=== PATIENT | male | born 1965 | race Caucasian/White ===

== ENCOUNTER 2022-12-24 07:06 | Emergency (ER) | payer BC, SELFPAY ==
--- NOTE | ~2022-12-24 | XR_ITS ---
EXAMINATION: XR ELBOW, LEFT CLINICAL INFORMATION: Redness and pain COMPARISON: None available. TECHNIQUE: 3 views of the left elbow. FINDINGS: Bone alignment is normal. No acute fracture or dislocation. There is question of old trauma to the lateral supracondylar humerus. Joint spaces are normal. There is no elbow joint effusion. There is soft tissue swelling over the olecranon probably representing olecranon bursitis. There is a small osteophyte at the triceps tendon insertion to the olecranon. XR/XR elbow LT min 3V IMPRESSION: Soft tissue swelling over the olecranon probably representing olecranon bursitis.
[2022-12-24 07:24] VITALS: BP 139/91; PULSE 76; RESP 16; TEMP 37.1; O2SAT 98; BMI 30.4
--- NOTE | 2022-12-24 08:29 | PC.NURSE ---
pt a&ox3. respirations even and unlabored. pt reporting left elbow pain for 3 weeks. elbow is red with round lump that is soft and non tender to touch. pt denies fever, chest pain, n/v. pt has appointment with ortho in 2 weeks but felt he should be seen sooner.
--- NOTE | 2022-12-24 08:43 | ED.EXTPRO ---
HPI - Extremity Problem General Chief complaint: Extremity Problem Stated complaint: elbow infection Time Seen by Provider: 12/24/22 08:32 Source: patient, RN notes reviewed and old records reviewed Mode of arrival: ambulatory History of Present Illness HPI Narrative: 57-year-old male with a past medical history of bursitis presenting to ED complaining of persistent left elbow bursitis with swelling and erythema x 3 weeks. Admits was seen at urgent care prescribed antibiotics which he finished 4 days ago, followed by seeing PCP who recommended orthopedic referral, but orthopedic appointment is in 2 weeks. Presented to the ED complaining of continued discomfort and concern for infection. Denies fever/chills, no injury/trauma or fall, history diabetes, decreased ROM MD Complaint: extremity pain and extremity swelling Onset (ago): week(s) Related Data Previous Rx's Medication Instructions Recorded acetaminophen 500 mg tablet 500 mg PO Q6H PRN fever or pain 12/24/22 (Tylenol Extra Strength) #14 tabs cephalexin 500 mg capsule 500 mg PO QID 7 days #28 caps 12/24/22 doxycycline hyclate 100 mg tablet 100 mg PO BID 7 days #14 tabs 12/24/22 morphine 15 mg immediate release 15 mg PO Q6H PRN pain (scale score 12/24/22 tablet 7-10) 3 days #9 tabs Allergies Allergy/AdvReac Type Severity Reaction Status Date / Time No Known Allergies Allergy Verified 12/24/22 07:24 Review of Systems Review of Systems: Constitutional: No Fever, No Chills ENT/Mouth: No Ear Pain, No Nasal Congestion, No sore throat, No Rhinorrhea, No Swallowing Difficulty Cardiovascular: No Chest Pain, No SOB Respiratory: No Cough Gastrointestinal: No Nausea, No Vomiting, No Abdominal pain Musculoskeletal: + joint pain, No Myalgias, + Joint Swelling Skin: No Skin Lesions, No rash Neuro: No Weakness, No Numbness, No Paresthesias Yes all other systems are reviewed and are negative Constitutional: Constitutional: Reports as per [facility] Past Medical History Attestation statement: The following information was validated with the patient. Source: old records reviewed Social History Social History Alcohol intake: current Alcohol intake frequency: holidays/special occasions only Smoked in Last 30 Days: No Use of substances other than those prescribed or required for medical reasons: No Advance Directives: No Advance Directives Information Provided: Yes Physical Exam Vital Signs: Vital Signs: Last Vital Signs Temp 98.7 F 12/24/22 07:24 Pulse 64 12/24/22 12:32 Resp 16 12/24/22 12:32 BP 130/77 12/24/22 12:32 Pulse Ox 97 12/24/22 12:32 O2 Del Method Room Air 12/24/22 12:32 BMI result Body Mass Index 30.4 Const: General: cooperative, healthy appearing and no acute distress Orientation/consciousness: patient oriented x3 Limitations: no limitations HEENT: Head: Yes normal to inspection and Yes atraumatic Ears: hearing grossly normal bilaterally General nose exam: Normal external nose present Face and sinus: Yes normal facial exam Eyes: General: appearance normal, both eyes and all related structures EOM: EOMs intact bilaterally Neck: Neck: Yes normal visual inspection and Yes no meningeal signs Resp: Effort & Inspection: normal respiratory effort and no respiratory distress Cardio: Rate: regular rate Peripheral pulses: radial pulses present and ulnar radial pulses present Skin: Rashes: no rashes Wounds: no wounds Neuro: General: patient oriented x3, tone normal and no meningeal signs Cranial nerves: Yes CN's II-XII intact bilaterally Gait exam (Neuro): Normal gait present Extrem: Other: Patient refer to images above of left elbow. + erythematous/swollen bursitis noted, not warm, nontender, full range of motion to elbow intact. Neurovascular intact distally. No fluctuance/induration or streaking. Course Course Course Narrative: XR elbow LT min 3V IMPRESSION: Soft tissue swelling over the olecranon probably representing olecranon bursitis. -no leukocytosis. ESR/CRP WNL. > case was discussed with orthopedic PA Matt recommended Benny wrap for compression and 1 time dose of IV antibiotics in the ED, d/c on p.o. antibiotics and orthopedic follow-up. -on re-evaluation patient reports symptomatic improvement after p.o. morphine given, requesting stronger dose of morphine upon discharge, discussed with patient at length this is not indicated Results discussed with patient including worrisome signs and symptoms and strict return precautions, and when to return to the emergency department. They verbalized understanding and feel safe for discharge at this time. Medications Administered Discontinued Medications Generic Name Dose Route Start Last Admin Trade Name Freq PRN Reason Stop Dose Admin Ceftriaxone Sodium 1 gm/ 50 mls @ 100 mls/hr 12/24/22 10:25 12/24/22 12:17 Sodium Chloride IV 12/24/22 10:54 Infused ONCE ONE Infusion Ketorolac Tromethamine 15 mg 12/24/22 10:30 12/24/22 11:12 Ketorolac Tromethamine 15 Mg/Ml Vial IVPUSH 12/24/22 10:31 15 mg ONCE ONE Administration Morphine Sulfate 15 mg 12/24/22 12:28 12/24/22 12:32 Morphine Sulfate Immed Release 15 Mg Tablet PO 12/24/22 12:29 15 mg ONCE ONE Administration Medical Decision Making Medical Decision Making MDM Narrative: 57-year-old male with a past medical history of bursitis presenting to ED complaining of persistent left elbow bursitis with swelling and erythema x 3 weeks. On exam vital signs stable, NAD, nontoxic appearing, physical exam as noted above, please refer to images. Concern for bursitis & infection/cellulitis vs ?Gout. Low suspicion for septic joint/arthritis Plan: Labs, Ortho consult Please refer to course for remaining clinical decision making, interpretation of labs/imaging results, and discussions with consultants and/or family members. Differential Diagnosis Differential Diagnoses: The differential diagnosis associated with the presentation includes As above Admission/Observation Consideration of admission/observation: Escalation of care including admission/observation considered Lab Data [facility] Lab Attestation statement: I reviewed the patient's lab results. 12/24/22 09:08 12/24/22 09:08 Labs: Lab Results 12/24/22 12/24/22 12/24/22 Range/Units 09:08 09:08 09:08 WBC 7.4 (4.8-10.8) X10*3/uL RBC 4.90 (4.60-5.80) X10*6/uL Hgb 14.0 (14.0-18.0) g/dl Hct 41.6 L (42.0-52.0) % MCV 84.9 (80.0-98.0) fL MCH 28.6 (27.0-33.0) pg MCHC 33.7 (31.0-36.0) g/dl RDW 12.7 (11.0-16.0) % Plt Count 253 (160-400) X10*3/uL MPV 9.2 L (9.4-12.4) fL Immature Gran % (Auto) 0.5 H (0.0-0.4) % Neut % (Auto) 67.1 (45-73) % Lymph % (Auto) 21.4 (20-40) % Florence % (Auto) 8.2 (2-11) % Eos % (Auto) 2.0 (0-4) % Baso % (Auto) 0.8 (0-2) % Lymph # (Auto) 1.6 (1.2-4.9) X10*3/uL Florence # (Auto) 0.6 (0.1-1.2) X10*3/uL Eos # (Auto) 0.2 (0.0-0.4) X10*3/uL Baso # (Auto) 0.1 (0.0-0.2) X10*3/uL Abs Immat Gran (auto) 0.04 H (0.00-0.03) X10*3/uL Absolute Neuts (auto) 5.0 (2.0-8.3) x10*3/uL Absolute Nucleated RBC 0.000 (0.0-0.012) X10*3/uL Nucleated RBC % (auto) 0.0 (0.0-0.2) /100WBC ESR 13 (0-15) MM/HR Sodium 141 (135-145) mmol/L Potassium 4.3 (3.3-5.1) mmol/L Chloride 107 (96-108) mmol/L Carbon Dioxide 24 (22-29) mmol/L Anion Gap 14 (12-20) BUN 18 H (9-16) mg/dL Creatinine 0.87 (0.5-1.4) mg/dL Estim Creat Clear Calc 103.6 Estimated GFR > 60 Random Glucose 88 (60-115) mg/dL Uric Acid (3.4-7.0) mg/dL Calcium 9.4 (8.4-10.2) mg/dL C-Reactive Protein 0.38 (< or = 0.50) mg/dL 12/24/22 Range/Units 09:08 WBC (4.8-10.8) X10*3/uL RBC (4.60-5.80) X10*6/uL Hgb (14.0-18.0) g/dl Hct (42.0-52.0) % MCV (80.0-98.0) fL MCH (27.0-33.0) pg MCHC (31.0-36.0) g/dl RDW (11.0-16.0) % Plt Count (160-400) X10*3/uL MPV (9.4-12.4) fL Immature Gran % (Auto) (0.0-0.4) % Neut % (Auto) (45-73) % Lymph % (Auto) (20-40) % Florence % (Auto) (2-11) % Eos % (Auto) (0-4) % Baso % (Auto) (0-2) % Lymph # (Auto) (1.2-4.9) X10*3/uL Florence # (Auto) (0.1-1.2) X10*3/uL Eos # (Auto) (0.0-0.4) X10*3/uL Baso # (Auto) (0.0-0.2) X10*3/uL Abs Immat Gran (auto) (0.00-0.03) X10*3/uL Absolute Neuts (auto) (2.0-8.3) x10*3/uL Absolute Nucleated RBC (0.0-0.012) X10*3/uL Nucleated RBC % (auto) (0.0-0.2) /100WBC ESR (0-15) MM/HR Sodium (135-145) mmol/L Potassium (3.3-5.1) mmol/L Chloride (96-108) mmol/L Carbon Dioxide (22-29) mmol/L Anion Gap (12-20) BUN (9-16) mg/dL Creatinine (0.5-1.4) mg/dL Estim Creat Clear Calc Estimated GFR Random Glucose (60-115) mg/dL Uric Acid 5.1 (3.4-7.0) mg/dL Calcium (8.4-10.2) mg/dL C-Reactive Protein (< or = 0.50) mg/dL Independent Interpretation I performed an independent interpretation of an: Plain X-Ray Radiology Impression Discussion of test interpretation with radiology: I have reviewed the radiologist's reading. Radiologist Impression: XR elbow LT min 3V IMPRESSION: Soft tissue swelling over the olecranon probably representing olecranon bursitis. External Record Review External record reviewed: Inpatient record, Office record, Outpatient record, Prior outpatient labs, Prior outpatient radiology, Primary care record and Outside ED record Tests considered The following testing was considered but not selected: As above Discharge Plan Discharge Clinical Impression: Bursitis Patient Disposition: Home, Self-Care Instructions: Elbow Bursitis (ED) Additional Instructions: Your blood work is reassuring. Her x-ray is consistent with bursitis Wear Benny wrap for compression Toradol as an anti-inflammatory/pain medication take with food In addition Keflex and doxycycline or antibiotics do not miss any doses Morphine isn't opiate pain medication, take only when pain is severe for the next [address], operate machinery or drink alcohol while taking morphine In addition you may take Tylenol YOU NEED TO FOLLOW-UP WITH ORTHOPEDIC SURGEON If symptoms persist or worsen return to the ED Prescriptions: New morphine 15 mg tablet 15 mg PO Q6H PRN (Reason: pain (scale score 7-10)) 3 Days Qty: 9 0RF Rx Instructions: Partial Fill upon patient request. acetaminophen [Tylenol Extra Strength] 500 mg tablet 500 mg PO Q6H PRN (Reason: fever or pain) Qty: 14 0RF cephalexin 500 mg capsule 500 mg PO QID 7 Days Qty: 28 0RF doxycycline hyclate 100 mg tablet 100 mg PO BID 7 Days Qty: 14 0RF Referrals: [facility] Sur[facility] [Provider Group] - 3 days (Bursitis x3 wks, failed outpatient abx) Physician,Unknown J [Primary Care Provider] - Interventions: ED Discharge Assessment Last Done: 12/24/22 14:23 Discharge Date/Time: 12/24/22 14:23
[2022-12-24 09:13] LABS: MANUAL DIFF FLAG NO
[2022-12-24 09:14] LABS: Basophils Absolute Auto 0.1 X10*3/uL (0.0-0.2); Basophils Percent Auto 0.8 % (0-2); Eosinophils Absolute Auto 0.2 X10*3/uL (0.0-0.4); Hematocrit 41.6 % (42.0-52.0); Imm Gran Abs Auto 0.04 X10*3/uL (0.00-0.03); Imm Gran Pct Auto 0.5 % (0.0-0.4); Lymphocytes Absolute Auto 1.6 X10*3/uL (1.2-4.9); Lymphocytes Percent Auto 21.4 % (20-40); Mean Corpuscular HGB Conc 33.7 g/dl (31.0-36.0); Mean Corpuscular Hemoglobin 28.6 pg (27.0-33.0); Mean Corpuscular Volume 84.9 fL (80.0-98.0); Mean Platelet Volume 9.2 fL (9.4-12.4); Monocytes Absolute Auto 0.6 X10*3/uL (0.1-1.2); Monocytes Percent Auto 8.2 % (2-11); Neutrophils Percent Auto 67.1 % (45-73); Platelet Count 253 X10*3/uL (160-400); Red Cell Distribution Width 12.7 % (11.0-16.0); White Blood Count 7.4 X10*3/uL (4.8-10.8)
[2022-12-24 09:58] LABS: Anion Gap 14 (12-20); Blood Urea Nitrogen 18 mg/dL (9-16); C Reactive Protein 0.38 mg/dL (< or = 0.50); Calcium 9.4 mg/dL (8.4-10.2); Carbon Dioxide 24 mmol/L (22-29); Chloride 107 mmol/L (96-108); Creatinine Clr Calc Pharmacy 103.6; Estimated Glomerular Filt Rate > 60; Glucose Random 88 mg/dL (60-115); Potassium 4.3 mmol/L (3.3-5.1); Sodium 141 mmol/L (135-145)
[2022-12-24 09:59] LABS: Erythrocyte Sedimentation Rate 13 MM/HR (0-15)
[2022-12-24 10:00] LABS: Uric Acid 5.1 mg/dL (3.4-7.0)
[2022-12-24 10:17] VITALS: BP 148/89; PULSE 60; RESP 16; O2SAT 98
[2022-12-24] MEDS: Ketorolac Tromethamine 15 MG/ML VIAL IVPUSH (11:12)
[2022-12-24] MEDS: cefTRIAXone sodium 1 GM in 0.9 % Sodium Chloride 50 ML IV (11:12)
[2022-12-24 12:32] VITALS: BP 130/77; PULSE 64; RESP 16; O2SAT 97
[2022-12-24] MEDS: Morphine Sulfate Immed Release 15 MG TABLET PO (12:32)
== END 2022-12-24 14:23 | disposition home or self-care (01) ==
PROVIDERS: Physician Assistant; Emergency Provider Emergency Medicine Emergency Medical Services
DX: M70.32 Other bursitis of elbow, left elbow (principal)
CPT/HCPCS: 36415; 73080; 80048; 84550; 85025; 85652; 86140; 96365; 96375; 99284; J0696; J1885